=== PATIENT | female | born 1975 ===

== ENCOUNTER → 2021-06-24 12:47 | Outpatient (BNVA) | payer OTHER, SELFPAY | PROVIDERS: PCP Obstetrics & Gynecology; Visit Provider Internal Medicine | DX: R76.8 Other specified abnormal immunological findings in serum (principal); M25.50 Pain in unspecified joint; Z11.59 Encounter for screening for other viral diseases; Z51.81 Encounter for therapeutic drug level monitoring; Z79.899 Other long term (current) drug therapy; R53.83 Other fatigue | CPT/HCPCS: 99204 ==

== ENCOUNTER 2021-06-24 14:22 | Outpatient (CLI) | payer OTHER, SELFPAY ==
--- NOTE | 2021-06-24 14:31 | XR_ITS ---
WS: [id number] HIPS BILATERAL TECHNIQUE: 5 views bilateral hips Including pelvis CLINICAL INFORMATION: R76.8 - Other specified abnormal immunological findings i... COMPARISON: None. FINDINGS: Mild degenerative narrowing both hips. Minimal hypertrophic changes of the acetabulum. No significant erosive changes. No acute fractures. XR/XR hip BI 3-4V wo/w pel [id number] IMPRESSION: Mild degenerative arthritis both hips with mild joint space narrowing. Tonnis classification LEFT: Tonnis classification RIGHT:
== END 2021-06-24 14:23 | disposition home or self-care (01) ==
PROVIDERS: PCP Obstetrics & Gynecology; Visit Provider Internal Medicine
DX: D86.9 Sarcoidosis, unspecified (principal); Z51.81 Encounter for therapeutic drug level monitoring; R76.8 Other specified abnormal immunological findings in serum; Z11.59 Encounter for screening for other viral diseases
CPT/HCPCS: 73522; 80053; 81001; 82306; 82550; 82784; 83516; 84443; 85025; 85651; 86160; 86162; 86235; 86255; 86376; 86704; 86803; 87340

== ENCOUNTER 2021-08-07 10:03 | Outpatient (CLI) | payer OTHER, SELFPAY ==
--- NOTE | 2021-08-07 11:15 | XR_ITS ---
WS: [id number] TECHNIQUE: 2 views of the right hand CLINICAL INFORMATION: M25.50 - Pain in unspecified joint COMPARISON: None. FINDINGS: Normal metacarpals. Normal MCP joint. Metacarpal heads are normal in appearance. Normal PIP and DIP j oints. No evidence of acute fracture or dislocation. Radiocarpal joint: Normal. Carpal bones: Normal. XR/XR hand RT 2V [id number] IMPRESSION: Normal right hand.
--- NOTE | 2021-08-07 11:45 | XR_ITS ---
WS: [id number] TECHNIQUE: 2 views of the left hand CLINICAL INFORMATION: M25.50 - Pain in unspecified joint COMPARISON: None. FINDINGS: Normal metacarpals. Normal MCP joint. Metacarpal heads are normal in appearance. Normal PIP and DIP j oints. No evidence of acute fracture or dislocation. Radiocarpal joint: Normal. Carpal bones: Normal. XR/XR hand LT 2V [id number] IMPRESSION: Normal left hand.
== END 2021-08-07 10:04 | disposition home or self-care (01) ==
LOC: RADWPI 10:07
PROVIDERS: PCP Obstetrics & Gynecology; Visit Provider Internal Medicine
DX: M25.50 Pain in unspecified joint (principal); Z79.899 Other long term (current) drug therapy; M25.542 Pain in joints of left hand; M25.541 Pain in joints of right hand
CPT/HCPCS: 36415; 73120; 81003